=== PATIENT | male | born 2000 | race Caucasian/White ===

== ENCOUNTER 2022-08-11 15:46 | Emergency (ER) | payer OTHER ==
[2022-08-11] MEDS ORDERED: Sodium Chloride 0.9% 1,000 ML IV SCH (16:45)
[2022-08-11 17:15] LABS: ESTIMATED GFR 109 mL/min (>60)
== END 2022-08-11 18:25 | disposition home or self-care (01) ==
LOC: JP.ED 15:46
DX: K52.9 Noninfective gastroenteritis and colitis, unspecified (principal); Z86.16 Personal history of COVID-19
CPT/HCPCS: 36415; 80053; 85025; 87046; 87177; 87209; 87899; 89055; 96360; 99283; 99284; J7030